=== PATIENT | female | born 1985 | race African-American/Black ===

== ENCOUNTER 2016-11-18 11:58 | Emergency (ER) | payer OTHER ==
[~2016-11-18] VITALS: Ht 175.3 cm; Wt 85.0 kg
[~2016-11-18 11:58] MED LIST: DIAZ5 PO; NAPR-576 PO
[2016-11-18 12:00] VITALS: BP 136/85; PULSE 77; RESP 14; TEMP 97.7; O2SAT 100
[2016-11-18] MEDS ORDERED: SODIUM CHLORIDE 0.9% FLUSH 5 ML FLUSH IVF PRN (13:00)
[2016-11-18] MEDS ORDERED: NAPROXEN 500 MG TAB PO ONE (13:30)
[2016-11-18 13:41] LABS: AUTOMATED NEUTROPHIL # 4.4 TH/MM3 (1.8-7.7); BASOPHIL # 0.1 TH/MM3 (0-0.2); BASOPHIL % 0.7 % (0.0-2.0); EOSINOPHIL # 0.1 TH/MM3 (0-0.4); EOSINOPHIL % 1.4 % (0.0-4.0); HEMATOCRIT 39.9 % (35.0-46.0); HEMO FLAGS DIFF FINAL; LYMPH % 36.1 % (9.0-44.0); LYMPHOCYTE # 2.9 TH/MM3 (1.0-4.8); MEAN CELL VOLUME 82.1 FL (80.0-100.0); MEAN CORPUSCULAR HEMOGLOBIN 26.2 PG (27.0-34.0); MEAN CORPUSCULAR HGB CONC 31.9 % (32.0-36.0); MONO % 6.2 % (0.0-8.0); NEUT % 55.6 % (16.0-70.0); PLATELET COUNT 316 TH/MM3 (150-450); RED BLOOD COUNT 4.86 MIL/MM3 (4.00-5.30); RED CELL DISTRIBUTION WIDTH 14.5 % (11.6-17.2)
[2016-11-18 13:44] LABS: BLOOD, URINE MOD (NEG); COMMENT (UR) CULT NOT INDICATED; CULTURE IF INDICATED CULT NOT INDICATED; GLUCOSE,URINE NEG (NEG); KETONE, URINE NEG (NEG); NITRITE,URINE NEG (NEG); SQUAMOUS EPITHELIAL CELL URINE 20 /hpf (0-5); URINE COLOR YELLOW (YELLW/STRAW)
--- NOTE | 2016-11-18 14:05 | PD ---
HPI Chief Complaint: Abdominal Pain Time Seen by Provider: 12:51 Travel History International Travel<30 days: No Contact w/Intl Traveler<30days: No Traveled to known affect area: No History of Present Illness HPI 31-year-old woman who presents to the emergency department complaining of abdominal pain. She had left lower abdominal pain it's been ongoing since last week, intermittently. It radiates to her bellybutton she felt a sharp poking in her bellybutton. No urinary symptoms. No vaginal discharge or vaginal bleeding. Last menstrual period chest finished. He was normal. No difficulty of urination. No diarrhea. No vomiting. No other complaints. History Past Medical History Medical History: Denies Significant Hx Tetanus Vaccination: > 5 Years LMP: : 2 Para: 2 Social History Alcohol Use: No Tobacco Use: No Allergies-Medications (Allergen,Severity, Reaction): Coded Allergies: Penicillin (Verified Allergy, Severe, 11/18/16) Amoxicillin (Verified Allergy, Unknown, 11/18/16) Reported Meds & Prescriptions Reported Meds & Active Scripts Active No Active Prescriptions or Reported Medications Review of Systems Except as stated in HPI: all other systems reviewed are Neg Physical Exam Narrative GENERAL: Well-appearing 31-year-old woman, no acute distress. SKIN: Warm and dry. HEAD: Atraumatic. Normocephalic. CARDIOVASCULAR: Regular rate and rhythm. No murmur appreciated. RESPIRATORY: No accessory muscle use. Clear to auscultation. Breath sounds equal bilaterally. GASTROINTESTINAL: Abdomen soft, non-tender, nondistended. Hepatic and splenic margins not palpable. MUSCULOSKELETAL: No obvious deformities. No clubbing. No cyanosis. No edema. NEUROLOGICAL: Awake and alert. No obvious cranial nerve deficits. Motor grossly within normal limits. Normal speech. PSYCHIATRIC: Appropriate mood and affect; insight and judgment normal. Data Data Last Documented VS Vital Signs Date Time Temp Pulse Resp B/P Pulse Ox O2 Delivery O2 Flow Rate FiO2 11/18/16 12:00 97.7 77 14 136/85 100 Room Air Orders Complete Blood Count With Diff (11/18/16 12:51) Comprehensive Metabolic Panel (11/18/16 12:51) Lipase (11/18/16 12:51) Urinalysis - C+S If Indicated (11/18/16 12:51) Iv Access Insert/Monitor (11/18/16 12:51) Sodium Chloride 0.9% Flush (Ns Flush) (11/18/16 13:00) Ed Urine Pregnancytest Poc (11/18/16 12:51) Naproxen (Naprosyn) (11/18/16 13:30) Labs Laboratory Tests Test 11/18/16 11/18/16 13:15 14:41 White Blood Count 8.0 TH/MM3 Red Blood Count 4.86 MIL/MM3 Hemoglobin 12.7 GM/DL Hematocrit 39.9 % Mean Corpuscular Volume 82.1 FL Mean Corpuscular Hemoglobin 26.2 PG Mean Corpuscular Hemoglobin 31.9 % Concent Red Cell Distribution Width 14.5 % Platelet Count 316 TH/MM3 Mean Platelet Volume 8.3 FL Neutrophils (%) (Auto) 55.6 % Lymphocytes (%) (Auto) 36.1 % Monocytes (%) (Auto) 6.2 % Eosinophils (%) (Auto) 1.4 % Basophils (%) (Auto) 0.7 % Neutrophils # (Auto) 4.4 TH/MM3 Lymphocytes # (Auto) 2.9 TH/MM3 Monocytes # (Auto) 0.5 TH/MM3 Eosinophils # (Auto) 0.1 TH/MM3 Basophils # (Auto) 0.1 TH/MM3 CBC Comment DIFF FINAL Differential Comment Urine Color YELLOW Urine Turbidity HAZY Urine pH 7.0 Urine Specific [place] 1.021 Urine Protein NEG mg/dL Urine Glucose (UA) NEG mg/dL Urine Ketones NEG mg/dL Urine Occult Blood MOD Urine Nitrite NEG Urine Bilirubin NEG Urine Urobilinogen LESS THAN 2.0 MG/DL Urine Leukocyte Esterase MOD Urine RBC 1 /hpf Urine WBC 2 /hpf Urine Squamous Epithelial 20 /hpf Cells Microscopic Urinalysis Comment CULT NOT INDICATED Total Bilirubin 0.4 MG/DL Alkaline Phosphatase 71 U/L Total Protein 8.0 GM/DL MDM Medical Decision Making Medical Screen Exam Complete: Yes Emergency Medical Condition: Yes Interpretation(s) CBC unremarkable CMP never resulted Lipase never resulted. UA negative Differential Diagnosis Ovarian cyst, UTI, enteritis, diverticulitis, PID, other Narrative Course Medical decision making 31-year-old woman presents emergent part of left-sided abdominal pain. Looks well. Pains been intermittent for the past week. 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 She doesn't have appendicitis. She sexually active with her fianc only. No vaginal discharge or other symptoms of PID. We'll check labs, urine, if negative recommend supportive treatment and outpatient follow-up. Diagnosis Primary Impression: Abdominal pain Qualified Code: R10.32 - Left lower quadrant pain Patient Instructions: General Instructions Additional Instructions: Take Naprosyn as needed for abdominal pain. Follow-up with your primary doctor in the next 2-4 days. Med/Other Pt SpecificInfo: Prescription(s) given Scripts Naproxen (Naprosyn)500 Mg [id number] Mg PO BID PRN (PAIN SCALE 1 TO 10) #20 TAB Prov:Tito Kapoor MD 11/18/16 Disposition: 01 DISCHARGE HOME Condition: Stable Tito Kapoor MD Nov 18, 2016 14:04
[2016-11-18 14:07] LABS: ALKALINE PHOSPHATASE 71 U/L (45-117); TOTAL BILIRUBIN ADULT 0.4 MG/DL (0.2-1.0)
[2016-11-18] MEDS ORDERED: NAPR500 PO (16:42)
[2016-11-18 20:16] LABS: ALT (GPT) 23 U/L (10-53); ANION GAP 9 MEQ/L (5-15); AST (GOT) 17 U/L (15-37); BICARBONATE 24.7 MEQ/L (21.0-32.0); BLOOD UREA NITROGEN 14 MG/DL (7-18); CHLORIDE 106 MEQ/L (98-107); GLOMERULAR FILTRATION RATE 78 ML/MIN (>89); POTASSIUM 4.1 MEQ/L (3.5-5.1); SODIUM (NA) 140 MEQ/L (136-145)
== END 2016-11-18 17:53 | disposition home or self-care (01) ==
LOC: NEPB 11:58
DX: R10.32 Left lower quadrant pain (principal)
CPT/HCPCS: 80053; 81001; 83690; 84703; 85025; 99284

== ENCOUNTER 2016-12-30 17:34 | Emergency (ER) | payer OTHER ==
[~2016-12-30] VITALS: Ht 157.5 cm; Wt 80.0 kg
[~2016-12-30 17:34] MED LIST changes: -DIAZ5 PO; -NAPR-576 PO; +NAPR500 PO
[2016-12-30 17:48] VITALS: BP 141/86; PULSE 89; RESP 18; TEMP 99.1; O2SAT 100
[2016-12-30] MEDS ORDERED: BENZ100 PO (18:27)
[2016-12-30] MEDS ORDERED: ERYT500 PO (18:27)
[2016-12-30] MEDS: RESP: ALBUTEROL 2.5 MG/IPRATROPIUM 0.5 MG NEB (SCH) INH (18:40)
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
--- NOTE | 2016-12-30 19:14 | RADHPO ---
EXAM DATE/TIME: 12/30/2016 18:46 [facility] COMPARISON: CHEST SINGLE AP, March 09, 2016, 11:39. INDICATIONS : Cough and shortness of breath. MEDICAL HISTORY : None. SURGICAL HISTORY : Tubal ligation. ENCOUNTER: Initial ACUITY: 1 week PAIN SCORE: 0/10 LOCATION: Bilateral chest FINDINGS: PA and lateral views of the chest demonstrate the lungs to be symmetrically aerated without evidence of mass, infiltrate or effusion. The cardiomediastinal contours are unremarkable. Osseous structure s are intact. CONCLUSION: No evidence of acute cardiopulmonary disease. Henrik Amaya MD on December 30, 2016 at 19:13 Board Certified Radiologist. This report was verified electronically.
[2016-12-30] MEDS ORDERED: DOXY100C PO (19:20)
[2016-12-30] MEDS ORDERED: IPRA0.06 EACH NARE (19:20)
== END 2016-12-30 19:27 | disposition home or self-care (01) ==
LOC: PHEFT 17:34
DX: J06.9 Acute upper respiratory infection, unspecified (principal); R05 Cough; R06.02 Shortness of breath; R50.9 Fever, unspecified
CPT/HCPCS: 71020; 87081; 87880; 94640; 94664; 99285

== ENCOUNTER 2017-02-03 22:45 | Observation (INO) | payer OTHER ==
[~2017-02-03] VITALS: Ht 175.3 cm; Wt 85.6 kg
[~2017-02-03 22:45] MED LIST changes: +BENZ100 PO; +DOXY100C PO; +ERYT500 PO; +IPRA0.06 EACH NARE; -NAPR500 PO
[2017-02-03 22:55] VITALS: BP 106/73; PULSE 100; RESP 18; TEMP 100.1; O2SAT 98
[2017-02-03] MEDS ORDERED: SODIUM CHLOR 0.9% 1000 ML INJ 1,000 ML IV SCH (23:22)
[2017-02-03] MEDS ORDERED: SODIUM CHLORIDE 0.9% FLUSH 10 ML FLUSH IV FLUSH PRN (23:30)
[2017-02-03] MEDS ORDERED: ONDANSETRON HCL 4 MG/2 ML VIAL IVP ONE (23:30)
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
[2017-02-04] VITALS (8 sets, daily range): BP systolic 111–127; BP diastolic 69–84; PULSE 67–83; RESP 16–20; TEMP 97.9–100; O2SAT 95–100
[2017-02-04 00:37] LABS: AUTOMATED NEUTROPHIL # 8.2 TH/MM3 (1.8-7.7); BASOPHIL # 0.1 TH/MM3 (0-0.2); BASOPHIL % 0.6 % (0.0-2.0); EOSINOPHIL # 0.1 TH/MM3 (0-0.4); EOSINOPHIL % 0.9 % (0.0-4.0); HEMATOCRIT 43.9 % (35.0-46.0); HEMO FLAGS DIFF FINAL; LYMPH % 8.2 % (9.0-44.0); LYMPHOCYTE # 0.8 TH/MM3 (1.0-4.8); MEAN CELL VOLUME 81.7 FL (80.0-100.0); MEAN CORPUSCULAR HEMOGLOBIN 25.5 PG (27.0-34.0); MEAN CORPUSCULAR HGB CONC 31.2 % (32.0-36.0); MONO % 3.2 % (0.0-8.0); NEUT % 87.1 % (16.0-70.0); PLATELET COUNT 285 TH/MM3 (150-450); RED BLOOD COUNT 5.37 MIL/MM3 (4.00-5.30); RED CELL DISTRIBUTION WIDTH 13.1 % (11.6-17.2); WHITE BLOOD COUNT 9.5 TH/MM3 (4.0-11.0)
[2017-02-04 00:45] LABS: CHLORIDE 104 MEQ/L (98-107); SODIUM (NA) 138 MEQ/L (136-145)
[2017-02-04] MEDS ORDERED: KETOROLAC TROMETHAMINE 60 MG/2 ML (IM) VIAL IVP ONE (00:45)
[2017-02-04 00:50] LABS: ANION GAP 9 MEQ/L (5-15); BICARBONATE 25.5 MEQ/L (21.0-32.0); BLOOD UREA NITROGEN 12 MG/DL (7-18)
[2017-02-04 00:50] LABS: BLOOD, URINE NEG (NEG); GLUCOSE,URINE NEG (NEG); KETONE, URINE NEG (NEG); NITRITE,URINE NEG (NEG); PH, URINE 5.5 (5.0-8.5)
[2017-02-04 00:53] LABS: ALT (GPT) 24 U/L (10-53); AST (GOT) 17 U/L (15-37); GLOMERULAR FILTRATION RATE 78 ML/MIN (>89)
[2017-02-04 00:54] LABS: TOTAL BILIRUBIN ADULT 0.5 MG/DL (0.2-1.0)
[2017-02-04 00:56] LABS: ALKALINE PHOSPHATASE 74 U/L (45-117)
[2017-02-04 01:01] LABS: BACTERIA, URINE OCC /hpf; COMMENT (UR) CULT NOT INDICATED; CULTURE IF INDICATED CULT NOT INDICATED; RBC, URINE 0-2 /hpf (0-3); URINE COLOR YELLOW (YELLW/STRAW)
[2017-02-04] MEDS ORDERED: SODIUM CHLORIDE 0.9% FLUSH 10 ML FLUSH IV FLUSH PRN (01:45)
[2017-02-04] MEDS ORDERED: ONDANSETRON HCL 4 MG/2 ML VIAL IVP PRN (01:45)
[2017-02-04] MEDS ORDERED: NALOXONE HCL 0.4 MG/ML AMP IV PRN (01:45)
[2017-02-04] MEDS: SODIUM CHLOR 0.9% 1000 ML INJ 1,000 ML IV SCH ×3 (02:17→16:03)
[2017-02-04] MEDS: SODIUM CHLORIDE 0.9% FLUSH 10 ML FLUSH IV FLUSH SCH ×2 (07:53→19:59)
[2017-02-04 08:07] LABS: AUTOMATED NEUTROPHIL # 3.9 TH/MM3 (1.8-7.7); BASOPHIL % 0.1 % (0.0-2.0); EOSINOPHIL % 0.1 % (0.0-4.0); HEMATOCRIT 35.8 % (35.0-46.0); LYMPHOCYTE # 0.9 TH/MM3 (1.0-4.8); MEAN CELL VOLUME 82.1 FL (80.0-100.0); MEAN CORPUSCULAR HEMOGLOBIN 26.7 PG (27.0-34.0); MEAN CORPUSCULAR HGB CONC 32.5 % (32.0-36.0); MONO % 6.3 % (0.0-8.0); NEUT % 75.5 % (16.0-70.0); PLATELET COUNT 242 TH/MM3 (150-450); RED BLOOD COUNT 4.36 MIL/MM3 (4.00-5.30); WHITE BLOOD COUNT 5.1 TH/MM3 (4.0-11.0)
[2017-02-04 08:11] LABS: HEMO FLAGS DIFF FINAL
[2017-02-04 08:13] LABS: CHLORIDE 110 MEQ/L (98-107); POTASSIUM 3.8 MEQ/L (3.5-5.1); SODIUM (NA) 143 MEQ/L (136-145)
[2017-02-04 08:26] LABS: ALT (GPT) 21 U/L (10-53); ANION GAP 7 MEQ/L (5-15); AST (GOT) 15 U/L (15-37); BICARBONATE 26.1 MEQ/L (21.0-32.0); BLOOD UREA NITROGEN 11 MG/DL (7-18); GLOMERULAR FILTRATION RATE 88 ML/MIN (>89); TOTAL BILIRUBIN ADULT 0.3 MG/DL (0.2-1.0)
--- NOTE | 2017-02-04 08:34 | HHI.HP ---
[facility] No Primary Care Physician Admission Diagnosis pancreatitis Diagnoses: (1) Pancreatitis, acute Diagnosis: Principal Chief Complaint: low back pain Travel History International Travel<30 Days: No Contact w/Intl Traveler <30 Da: No Traveled to Known Affected Are: No History of Present Illness patient is a 31 y/o female with chronic low back pain presented to ER with worsening low back pain. she says that she was at her usual state of health till yesterday when she started to have worsening back pain. she says that she went home from work. she felt very weak and later she started to have nausea and vomiting. she initially thought that she had food poisoning. she denies any diarrhea, fever or chills. she was feeling better at the time of my evaluation. Review of Systems Constitutional: DENIES: Fever, Weight loss, Chills, Night Sweats Eyes: DENIES: Blurred vision, Diplopia, Vision loss, Double Vision Ears, nose, mouth, throat: DENIES: Tinnitus, Vertigo, Throat pain, Epistaxis Respiratory: DENIES: Apneas, Cough, Snoring, Wheezing, Hemoptysis, Sputum production, Shortness of breath Cardiovascular: DENIES: Chest pain, Palpitations, Syncope, Dyspnea on Exertion , PND, Lower Extremity Edema, Orthopnea, Claudication Gastrointestinal: COMPLAINS OF: Nausea, Vomiting, DENIES: Abdominal pain, Black stools, Bloody stools, Constipation, Diarrhea, Difficulty Swallowing, Anorexia Genitourinary: DENIES: Urinary frequency, Urgency, Hematuria, Dysuria Musculoskeletal: COMPLAINS OF: Back pain, DENIES: Joint pain, Muscle aches, Stiffness, Joint Swelling Integumentary: DENIES: Rash Neurologic: DENIES: Abnormal gait, Headache, Localized weakness, Paresthesias, Seizures, Speech Problems, Tremor, Poor Balance Psychiatric: DENIES: Anxiety, Confusion, Mood changes, Depression, Hallucinations, Agitation, Suicidal Ideation, Homicidal Ideation, Delusions Past Family Social History Past Medical History chronic low back pain Past Surgical History ortho surgeries. Reported Medications Doxycycline Hyclate 100 Mg Cap 100 Mg PO BID Ipratropium Nasal 0.06% [place] 1 [place] EACH NARE TID Tessalon Perles (Benzonatate) 100 Mg Cap 100 Mg PO TID PRN Kale-Tab DR (Erythromycin) 500 Mg Tabdr 500 Mg PO BID Allergies: Coded Allergies: Penicillin (Verified Allergy, Severe, 02/03/17) Amoxicillin (Verified Allergy, Unknown, 02/03/17) Active Ordered Medications Current Medications Ondansetron HCl 4 mg 4 mg ONCE ONCE IVP Last administered on 02/04/17 00:33; Start 02/03/17 at 23:30; Stop 02/03/17 at 23:31; Status DC Sodium Chloride (NS 1000 ml Inj) 1,000 ml @ 1,000 mls/hr Q1H IV Last administered on 02/04/17 00:33; Start 02/03/17 at 23:22; Stop 02/04/17 at 00:21; Status DC Sodium Chloride (NS Flush) 2 ml UNSCH PRN IV FLUSH FLUSH AFTER USING IV ACCESS ; Start 02/03/17 at 23:30; Stop 02/04/17 at 01:49; Status DC Ketorolac Tromethamine 30 mg 30 mg ONCE ONCE IVP Last administered on 01:09; Start 02/04/17 at 00:45; Stop 02/04/17 at 00:46; Status DC Sodium Chloride (NS 1000 ml Inj) 1,000 ml @ 200 mls/hr Q5H IV Last administered on 02/04/17 07:53; Start 02/04/17 at 01:42 Sodium Chloride (NS Flush) 2 ml UNSCH PRN IV FLUSH FLUSH AFTER USING IV ACCESS ; Start 02/04/17 at 01:45 Sodium Chloride (NS Flush) 2 ml BID IV FLUSH Last administered on 02/04/17 07: 53; Start 02/04/17 at 09:00 Ondansetron HCl (Zofran Inj) 4 mg Q6H PRN IVP NAUSEA OR VOMITING; Start at 01:45 Naloxone HCl (Narcan Inj) 0.4 mg UNSCH PRN IV SEE LABEL COMMENTS; Start at 01:45 Family History not relevant to this presentation. Social History no smoking. drinks occasionally. Physical Exam Vital Signs Vital Signs Date Time Temp Pulse Resp B/P Pulse Ox O2 Delivery O2 Flow Rate FiO2 02/04/17 05:51 98.7 67 16 111/69 95 02/04/17 03:34 98.6 76 16 116/72 100 02/04/17 03:29 70 02/04/17 01:43 99.9 83 16 125/70 100 Room Air 02/03/17 22:55 100.1 100 18 106/73 98 Physical Exam GENERAL: This is a well-nourished, well-developed patient, in no apparent distress. SKIN: No rashes, ecchymoses or lesions. Cool and dry. HEAD: Atraumatic. Normocephalic. No temporal or scalp tenderness. EYES: Pupils equal round and reactive. Extraocular motions intact. No scleral icterus. No injection or drainage. ENT: Nose without bleeding, purulent drainage or septal hematoma. Throat without erythema, tonsillar hypertrophy or exudate. Uvula midline. Airway patent. NECK: Trachea midline. No JVD or lymphadenopathy. Supple, nontender, no meningeal signs. CARDIOVASCULAR: Regular rate and rhythm without murmurs, gallops, or rubs. RESPIRATORY: Clear to auscultation. Breath sounds equal bilaterally. No wheezes , rales, or rhonchi. GASTROINTESTINAL: Abdomen soft, non-tender, nondistended. No hepato-splenomegaly , or palpable masses. No guarding. MUSCULOSKELETAL: Extremities without clubbing, cyanosis, or edema. No joint tenderness, effusion, or edema noted. No calf tenderness. Negative Homans sign bilaterally. NEUROLOGICAL: Awake and alert. Cranial nerves II through XII intact. Motor and sensory grossly within normal limits. Five out of 5 muscle strength in all muscle groups. Normal speech. Laboratory Laboratory Tests Test 02/04/17 02/04/17 02/04/17 00:20 00:30 06:40 White Blood Count 9.5 5.1 Red Blood Count 5.37 4.36 Hemoglobin 13.7 11.6 Hematocrit 43.9 35.8 Mean Corpuscular Volume 81.7 82.1 Mean Corpuscular Hemoglobin 25.5 26.7 Mean Corpuscular Hemoglobin 31.2 32.5 Concent Red Cell Distribution Width 13.1 13.0 Platelet Count 285 242 Mean Platelet Volume 7.9 8.1 Neutrophils (%) (Auto) 87.1 75.5 Lymphocytes (%) (Auto) 8.2 18.0 Monocytes (%) (Auto) 3.2 6.3 Eosinophils (%) (Auto) 0.9 0.1 Basophils (%) (Auto) 0.6 0.1 Neutrophils # (Auto) 8.2 3.9 Lymphocytes # (Auto) 0.8 0.9 Monocytes # (Auto) 0.3 0.3 Eosinophils # (Auto) 0.1 0.0 Basophils # (Auto) 0.1 0.0 CBC Comment DIFF FINAL DIFF FINAL Differential Comment Sodium Level 138 143 Potassium Level 4.0 3.8 Chloride Level 104 110 Carbon Dioxide Level 25.5 Anion Gap 9 Blood Urea Nitrogen 12 Creatinine 1.00 Estimat Glomerular Filtration 78 Rate Random Glucose 98 Lactic Acid Level 1.4 Calcium Level 9.1 Total Bilirubin 0.5 Aspartate Amino Transf 17 (AST/SGOT) Alanine Aminotransferase 24 (ALT/SGPT) Alkaline Phosphatase 74 Total Protein 8.2 Albumin 4.1 Lipase 962 Urine Color YELLOW Urine Turbidity CLEAR Urine pH 5.5 Urine Specific [place] 1.015 Urine Protein NEG Urine Glucose (UA) NEG Urine Ketones NEG Urine Occult Blood NEG Urine Nitrite NEG Urine Bilirubin NEG Urine Leukocyte Esterase TRACE Urine RBC 0-2 Urine WBC 3-5 Urine Squamous Epithelial 6-8 Cells Urine Bacteria OCC Microscopic Urinalysis Comment CULT NOT INDICATED Date/Time Procedure Status Source Growth 02/04/17 00:25 Aerobic Blood Culture Received Blood Peripheral Pending 02/04/17 00:25 Anaerobic Blood Culture Received Blood Peripheral Pending Result Diagram: 02/04/17 0640 02/04/17 0640 Assessment and Plan Assessment and Plan A/P - acute pancreatitis- improving will advance the diet slowly- continue with supportive care- check the abdominal sonogram and TG level. monitor the lipase level. Discussed Condition With the patient. Problem Qualifiers (1) Pancreatitis, acute: Qualified Code: K85.90 - Acute pancreatitis without infection or necrosis, unspecified pancreatitis type Sanjeev Hinson MD Feb 04, 2017 08:34
[2017-02-04 09:06] LABS: ALKALINE PHOSPHATASE 58 U/L (45-117)
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
[2017-02-04] MEDS: ACETAMINOPHEN 325 MG TAB PO PRN ×2 (12:29→21:14)
[2017-02-05 00:46] VITALS: BP 128/74; PULSE 89; RESP 20; TEMP 100.5; O2SAT 98
[2017-02-05] MEDS: SODIUM CHLOR 0.9% 1000 ML INJ 1,000 ML IV SCH ×2 (00:50→13:40)
[2017-02-05 04:20] VITALS: BP 126/80; PULSE 90; RESP 18; TEMP 100; O2SAT 97
[2017-02-05 08:00] VITALS: BP 122/79; PULSE 73; RESP 20; TEMP 98; O2SAT 98
[2017-02-05] MEDS: SODIUM CHLORIDE 0.9% FLUSH 10 ML FLUSH IV FLUSH SCH (09:00)
--- NOTE | 2017-02-05 09:50 | HHI.PR ---
Subjective Remarks resting comfortably with no distress. tolerating the diet. no nausea or vomiting. noted that had a low grade fever last night. Objective Vitals Vital Signs Date Time Temp Pulse Resp B/P Pulse Ox O2 Delivery O2 Flow Rate FiO2 02/05/17 08:00 98.0 73 20 122/79 98 02/05/17 04:20 100.0 90 18 126/80 97 02/05/17 00:46 100.5 89 20 128/74 98 02/04/17 20:20 100.0 78 20 127/84 98 02/04/17 16:00 98.2 73 18 117/76 100 02/04/17 12:00 97.9 69 18 115/72 100 I/O 02/04/17 02/04/17 02/04/17 02/05/17 02/05/17 02/05/17 07:00 15:00 23:00 07:00 15:00 23:00 Intake Total 1300 ml 690 ml Output Total 200 ml Balance 1100 ml 690 ml Intake Oral 690 ml IV Total 1300 ml Output Urine Total 200 ml # Voids 3 3 3 # Bowel Movements 0 Result Diagram: 02/04/17 0640 02/04/17 0640 Imaging Last Impressions Gall Bladder Ultrasound 02/04/17 0000 Signed Impressions: Service Date/Time: February 08:56 - CONCLUSION: 6 mm gallstone in the gallbladder. Otherwise within normal limits. Trell Kee MD Objective Remarks GENERAL: This is a well-nourished, well-developed patient, in no apparent distress. CARDIOVASCULAR: Regular rate and regular rhythm without murmurs, gallops, or rubs. RESPIRATORY: Clear to auscultation. Breath sounds equal bilaterally. No wheezes , rales, or rhonchi. GASTROINTESTINAL: Abdomen soft, non-tender, nondistended. Normal, active bowel sounds MUSCULOSKELETAL: Extremities without clubbing, cyanosis, or edema. NEURO: Alert & Oriented x4 to person, place, time, situation. Moves all ext x4 Procedures none Medications and IVs Current Medications Ondansetron HCl 4 mg 4 mg ONCE ONCE IVP Last administered on 02/04/17t 00:33; Start 02/03/17 at 23:30; Stop 02/03/17 at 23:31; Status DC Sodium Chloride (NS 1000 ml Inj) 1,000 ml @ 1,000 mls/hr Q1H IV Last administered on 02/04/17 00:33; Start 02/03/17 at 23:22; Stop 02/04/17 at 00:21; Status DC Sodium Chloride (NS Flush) 2 ml UNSCH PRN IV FLUSH FLUSH AFTER USING IV ACCESS ; Start 02/03/17 at 23:30; Stop 02/04/17 at 01:49; Status DC Ketorolac Tromethamine 30 mg 30 mg ONCE ONCE IVP Last administered on 01:09; Start 02/04/17 at 00:45; Stop 02/04/17 at 00:46; Status DC Sodium Chloride (NS 1000 ml Inj) 1,000 ml @ 100 mls/hr Q10H IV Last administered on 02/05/17 00:50; Start 02/04/17 at 01:42 Sodium Chloride (NS Flush) 2 ml UNSCH PRN IV FLUSH FLUSH AFTER USING IV ACCESS ; Start 02/04/17 at 01:45 Sodium Chloride (NS Flush) 2 ml BID IV FLUSH Last administered on 02/04/17 07: 53; Start 02/04/17 at 09:00 Ondansetron HCl (Zofran Inj) 4 mg Q6H PRN IVP NAUSEA OR VOMITING; Start at 01:45 Naloxone HCl (Narcan Inj) 0.4 mg UNSCH PRN IV SEE LABEL COMMENTS; Start at 01:45 Acetaminophen (Tylenol) 650 mg Q4H PRN PO FEVER/PAIN/HEADACHE Last administered on 02/04/17 21:14; Start 02/04/17 at 12:00 A/P Assessment and Plan A/P - acute pancreatitis- improving continue with supportive care- GB sonogram with 6-mm gallstone with no evidence of acute cholecystitis monitor the lipase level. Discharge Planning possible dc home later this evening or in am if with no recurrent fever. f/u; pcp upon discharge. d/w the patient. Sanjeev Hinson MD Feb 05, 2017 09:50
[2017-02-05 12:00] VITALS: BP 121/80; PULSE 69; RESP 20; TEMP 96.7; O2SAT 100
--- NOTE | 2017-02-05 14:35 | HHI.DS ---
Discharge Summary Admission Date Feb 04, 2017 at 01:42 Discharge Date: Feb 05, 2017 Admitting Diagnosis pancreatitis (1) Pancreatitis, acute ICD Code: K85.90 Diagnosis: Principal Procedures none Brief History - From Admission patient is a 31 y/o female with chronic low back pain presented to ER with worsening low back pain. she says that she was at her usual state of health till yesterday when she started to have worsening back pain. she says that she went home from work. she felt very weak and later she started to have nausea and vomiting. she initially thought that she had food poisoning. she denies any diarrhea, fever or chills. she was feeling better at the time of my evaluation. CBC/BMP: 02/04/17 0640 02/04/17 0640 Significant Findings Laboratory Tests Test 02/04/17 02/04/17 02/04/17 00:20 00:30 06:40 Red Blood Count 5.37 MIL/MM3 (4.00-5.30) Mean Corpuscular Hemoglobin 25.5 PG 26.7 PG (27.0-34.0) (27.0-34.0) Mean Corpuscular Hemoglobin 31.2 % Concent (32.0-36.0) Neutrophils (%) (Auto) 87.1 % 75.5 % (16.0-70.0) (16.0-70.0) Lymphocytes (%) (Auto) 8.2 % (9.0-44.0) Neutrophils # (Auto) 8.2 TH/MM3 (1.8-7.7) Lymphocytes # (Auto) 0.8 TH/MM3 0.9 TH/MM3 (1.0-4.8) (1.0-4.8) Estimat Glomerular Filtration 78 ML/MIN (>89) 88 ML/MIN (>89) Rate Lipase 962 U/L (73-393) Urine Leukocyte Esterase TRACE (NEG) Urine Squamous Epithelial 6-8 /hpf (0-5) Cells Urine Bacteria OCC /hpf (NONE) Chloride Level 110 MEQ/L (98-107) Calcium Level 8.0 MG/DL (8.5-10.1) Albumin 3.1 GM/DL (3.4-5.0) Triglycerides Level 35 MG/DL (42-150) Imaging Last Impressions Gall Bladder Ultrasound 02/04/17 0000 Signed Impressions: Service Date/Time: , February 04, 2017 08:56 - CONCLUSION: 6 mm gallstone in the gallbladder. Otherwise within normal limits. Trell Kee MD PE at Discharge GENERAL: This is a well-nourished, well-developed patient, in no apparent distress. CARDIOVASCULAR: Regular rate and regular rhythm without murmurs, gallops, or rubs. RESPIRATORY: Clear to auscultation. Breath sounds equal bilaterally. No wheezes , rales, or rhonchi. GASTROINTESTINAL: Abdomen soft, non-tender, nondistended. Normal, active bowel sounds MUSCULOSKELETAL: Extremities without clubbing, cyanosis, or edema. NEURO: Alert & Oriented x4 to person, place, time, situation. Moves all ext x4 Hospital Course - acute pancreatitis- improving continue with supportive care- GB sonogram with 6-mm gallstone with no evidence of acute cholecystitis monitor the lipase level. Pt Condition on Discharge: Good Discharge Disposition: Discharge Home Discharge Time: <= 30 minutes Discharge Instructions DIET: Follow Instructions for: Low Fat Diet Activities you can perform: Regular-No Restrictions Follow up Referrals: PCP Follow-up Continued Medications: Benzonatate (Tessalon Perles) 100 Mg Cap 100 MG PO TID PRN COUGH Ref 0 CAP Ipratropium Nasal (Ipratropium Nasal) 0.06% [place] 1 SPRAY EACH NARE TID #1 Ref 0 BOTTLE Discontinued Medications: Doxycycline Hyclate (Doxycycline Hyclate) 100 Mg Cap 100 MG PO BID Infection #[address] Ref [address] (Kale-Tab DR) 500 Mg Tabdr 500 MG PO BID Infection Ref 0 TAB Sanjeev Hinson MD Feb 05, 2017 14:35
--- NOTE | 2017-02-05 14:35 | HHI.DCPOC ---
Discharge Care Plan Diagnosis: (1) Pancreatitis, acute Goals to Promote Your Health * To prevent worsening of your condition and complications * To maintain your health at the optimal level Directions to Meet Your Goals Take your medications as prescribed Follow your dietary instruction Follow activity as directed Keep your appointments as scheduled Take your immunizations and boosters as scheduled If your symptoms worsen call your PCP, if no PCP go to Urgent Care Center or Emergency Room Smoking is Dangerous to Your Health. Avoid second hand smoke Call the 24-hour hour crisis hotline for domestic abuse at Sanjeev Hinson MD Feb 05, 2017 14:35
== END 2017-02-05 15:45 | disposition home or self-care (01) ==
LOC: PHED 22:45 → PHEDA 02-04 01:42 → PH3A 02-04 02:57
PROVIDERS: ADMIT Internal Medicine; ATTEND Internal Medicine
DX: K85.90 Acute pancreatitis without necrosis or infection, unspecified (principal); R50.9 Fever, unspecified
CPT/HCPCS: 76705; 80053; 81001; 83605; 83690; 84478; 84703; 85025; 87040; 96374; 96375; 99285; G0378; J1885; J2405; J7030

== ENCOUNTER 2017-12-08 08:54 | Emergency (ER) | payer OTHER ==
[~2017-12-08] VITALS: Ht 175.3 cm; Wt 80.2 kg
[2017-12-08 09:00] VITALS: BP 129/63; PULSE 75; RESP 18; TEMP 98.9; O2SAT 99
[2017-12-08 09:21] VITALS: BP 129/63; PULSE 77; RESP 16; TEMP 98.9; O2SAT 99
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
[2017-12-08] MEDS ORDERED: PROCHLORPERAZINE INJ 10 MG/2 ML VIAL IV PUSH ONE (09:30)
[2017-12-08] MEDS ORDERED: SODIUM CHLOR 0.9% 1000 ML INJ 1,000 ML IV ONE (09:30)
[2017-12-08] MEDS ORDERED: diphenhydrAMINE HCL 50 MG/ML VIAL IV PUSH ONE (09:30)
[2017-12-08 10:05] LABS: BILIRUBIN, URINE NEG (NEG); BLOOD, URINE MOD (NEG); GLUCOSE,URINE NEG (NEG); KETONE, URINE NEG (NEG); NITRITE,URINE NEG (NEG); URINE COLOR YELLOW (YELLW/STRAW); URINE LEUKOCYTE ESTERASE NEG (NEG)
[2017-12-08] MEDS ORDERED: SUMAtriptan INJ 6 MG/0.5 ML VIAL SQ ONE (10:30)
[2017-12-08 10:32] VITALS: BP 104/69; PULSE 66; RESP 16; O2SAT 100
[2017-12-08 11:03] LABS: AUTOMATED NEUTROPHIL # 3.4 TH/MM3 (1.8-7.7); BASOPHIL % 0.3 % (0.0-2.0); EOSINOPHIL # 0.1 TH/MM3 (0-0.4); EOSINOPHIL % 0.9 % (0.0-4.0); HEMATOCRIT 38.7 % (35.0-46.0); HEMOGLOBIN 12.6 GM/DL (11.6-15.3); LYMPH % 42.6 % (9.0-44.0); LYMPHOCYTE # 2.8 TH/MM3 (1.0-4.8); MEAN CELL VOLUME 82.5 FL (80.0-100.0); MEAN CORPUSCULAR HEMOGLOBIN 26.8 PG (27.0-34.0); MEAN CORPUSCULAR HGB CONC 32.5 % (32.0-36.0); MEAN PLATELET VOLUME 7.4 FL (7.0-11.0); MONO % 6.7 % (0.0-8.0); MONOCYTE # 0.4 TH/MM3 (0-0.9); NEUT % 49.5 % (16.0-70.0); PLATELET COUNT 311 TH/MM3 (150-450); RED BLOOD COUNT 4.69 MIL/MM3 (4.00-5.30); RED CELL DISTRIBUTION WIDTH 12.9 % (11.6-17.2); WHITE BLOOD COUNT 6.7 TH/MM3 (4.0-11.0)
--- NOTE | 2017-12-08 11:06 | RADRPT ---
EXAM DATE/TIME: 12/08/2017 10:40 [facility] COMPARISON: No previous studies available for comparison. INDICATIONS : Cephalgia with photophobia. RADIATION DOSE: 65.95 CTDIvol (mGy) ; Patient motion MEDICAL HISTORY : None SURGICAL HISTORY : Tubal ligation. section. ENCOUNTER: Initial ACUITY: 3 days PAIN SCALE: 10/10 LOCATION: cranial TECHNIQUE: Multiple contiguous axial images were obtained of the head. Using automated exposure control and adj ustment of the mA and/or kV according to patient size, radiation dose was kept as low as reasonably a chievable to obtain optimal diagnostic quality images. DICOM format image data is available electro nically for review and comparison. FINDINGS: CEREBRUM: The ventricles are normal for age. No evidence of midline shift, mass lesion, hemorrhage or acute in farction. No extra-axial fluid collections are seen. POSTERIOR FOSSA: The cerebellum and brainstem are intact. The 4th ventricle is midline. The cerebellopontine angle i s unremarkable. EXTRACRANIAL: The visualized portion of the orbits is intact. SKULL: The calvaria is intact. No evidence of skull fracture. CONCLUSION: 1. Negative noncontrast CT brain. Will Us MD on December 08, 2017 at 11:03 Board Certified Radiologist. This report was verified electronically.
[2017-12-08 11:11] LABS: CHLORIDE 105 MEQ/L (98-107); SODIUM (NA) 137 MEQ/L (136-145)
[2017-12-08 11:15] LABS: ALBUMIN 3.8 GM/DL (3.4-5.0); BLOOD UREA NITROGEN 15 MG/DL (7-18); GLUCOSE,RANDOM 92 MG/DL (74-106)
[2017-12-08 11:18] LABS: ALT (GPT) 17 U/L (10-53); AST (GOT) 14 U/L (15-37); CREATININE 0.91 MG/DL (0.50-1.00); GLOMERULAR FILTRATION RATE 87 ML/MIN (>89)
[2017-12-08 11:19] LABS: TOTAL BILIRUBIN ADULT 0.4 MG/DL (0.2-1.0); TOTAL PROTEIN 7.7 GM/DL (6.4-8.2)
[2017-12-08 11:21] LABS: ALKALINE PHOSPHATASE 77 U/L (45-117)
[2017-12-08] MEDS ORDERED: IMIT25TA PO (11:27)
[2017-12-08 11:40] VITALS: BP 101/58; PULSE 66; RESP 16; O2SAT 100
== END 2017-12-08 11:40 | disposition home or self-care (01) ==
LOC: PHED 08:54
DX: G43.909 Migraine, unspecified, not intractable, without status migrainosus (principal); Z88.0 Allergy status to penicillin
CPT/HCPCS: 70450; 80053; 81001; 85025; 96372; 99284; J3030